=== PATIENT | female | born 1950 | race Caucasian/White ===

== ENCOUNTER 2025-04-04 12:03 | Emergency (ER) | payer MEDICARE, MEDICAID ==
[~2025-04-04] VITALS: Ht 170.2 cm; Wt 65.0 kg
[2025-04-04 12:13] VITALS: TEMP 97.4
--- NOTE | 2025-04-04 12:23 | ELECTROCARDIOGRAPH REPORT ---
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 Aramis Lira Measurements Intervals [place] Rate: 62 P: 21 GA: 153 QRS: -44 QRSD: 133 T: -38 QT: 530 QTc: 539 Interpretive Statements Sinus rhythm RBBB and LAFB Left ventricular hypertrophy Nonspecific T abnormalities, lateral leads ST elevation, consider inferior injury Electronically Signed On 04-12-2025 18:42:[address] Aramis Lira Please click the below link to view image of tracing.
[2025-04-04 12:38] LABS: BASOPHILS % (AUTO) 0.2 % (0-1); EOSINOPHILS # (AUTO) 0.1 X10'3 (0-0.9); EOSINOPHILS % (AUTO) 0.6 % (0-6); HEMATOCRIT 40.4 % (35.0-45.0); LYMPHOCYTES % (AUTO) 8.4 % (21-51); MEAN CORPUSCULAR HEMOGLOBIN 26.4 PG (27.0-31.0); MEAN CORPUSCULAR HGB CONC 32.1 g/dL (33.0-36.5); MEAN CORPUSCULAR VOLUME 82.3 FL (78-98); MEAN PLATELET VOLUME 6.5 FL (7.4-10.4); MONOCYTES # (AUTO) 0.3 X10'3 (0-0.9); MONOCYTES % (AUTO) 2.4 % (2-12); NEUTROPHILS % (AUTO) 88.4 % (42-75); PLATELET COUNT 372 X10'3 (140-440); RED BLOOD COUNT 4.91 X10'6 (4.20-5.60); RED CELL DISTRIBUTION WIDTH 18.4 % (11.5-14.5); WHITE BLOOD COUNT 12.4 X10'3 (4.5-11.0)
--- NOTE | 2025-04-04 12:44 | RADIOLOGY REPORT ---
CHEST RADIOGRAPH Indication: CP Technique: Single frontal view of the chest was obtained COMPARISON: None FINDINGS: Lines and Tubes: None Lungs: Clear Pleura: No effusion. No pneumothorax. Cardiomediastinal contours: Unremarkable Bones: Unremarkable IMPRESSION: No acute disease.
[2025-04-04 12:54] LABS: ANION GAP 8 (8-16); BLOOD UREA NITROGEN 18 MG/DL (7-18); BUN/CREATININE RATIO 22.5 (10.0-20.0); CALCIUM 9.6 MG/DL (8.5-10.1); CHLORIDE 106 MMOL/L (99-107); GLUCOSE 161 MG/DL (70-104); POTASSIUM 3.4 MMOL/L (3.5-5.1); PRO BRAIN NATRIURETIC PEPTIDE 1370 PG/ML (0-450); SODIUM 144 MMOL/L (135-145); TOTAL CARBON DIOXIDE 29.6 MMOL/L (24-32); eCRCL 59 ML/MIN; eGFR 70 ML/MIN
--- NOTE | 2025-04-04 14:19 | Physician Documentation ---
History of Present Illness ~ Chief Complaint: Dizziness Stated Complaint: DIZZY Time Seen by MD: 14:00 HPI 74-year-old female presents to the ED with a complaint of two days of dizziness. She states that she went to [facility] today to be evaluated and was sent here to the ED for concerns about of her heart. Patient is a poor historian. . She denies any current chest pain , does report shortness of breath Patient also was recently relocated from [facility] out of concerns for her health. She is working on getting established with a local doctors. Day of Onset: Apr 04, 2025 Medication Reconciliation Allergies: Coded Allergies: No Known Allergies (Unverified , 04/04/25) Scheduled Rosuvastatin Calcium (Rosuvastatin Calcium), 1 TAB PO DAILY, (Reported) Review of Systems All Other Systems at this time: Reviewed and Negative ROS As stated above in the HPI, otherwise all systems are reviewed and negative. Physical Exam Vital Signs: Temperature: 97.4, Source: Temporal, Heart Rate: 63, Respiratory Rate: 16, BP: 148/78, Pulse Oximetry: 96, Weight: 65.000 Oxygen Flow Rate: 0 Physical Exam General: Alert, no apparent distress. Respiratory: Lungs clear, no respiratory distress. Cardiovascular: Regular rate and rhythm, no murmurs. Extremities: Normal range of motion, no deformity. no Edema Neurologic: Oriented x4. Psychiatric: Normal mood and affect. Progress Results/Orders Results/Orders Orders - MASON HILL MD Chest,Single View (04/04/25 12:17) Monitor (04/04/25 12:17) Saline Lock (04/04/25 12:17) Oxygen (04/04/25 12:17) Cult Urine + [place] [address] (04/04/25 16:55) Completed Orders - MASON HILL MD Chest,Single View (04/04/25 12:17) Cbc/Diff (04/04/25 12:17) BMP (04/04/25 12:17) PBNP (04/04/25 12:17) Electrocardiogram (04/04/25 12:17) Hs Troponin I W Calculations (04/04/25 12:17) Hs Troponin I W Calculations (04/04/25 14:17) Hs Troponin I W Calculations (04/04/25 15:17) Ua W/Microscopic, Cult If Ind (04/04/25 16:14) Vital Signs 04/04/25 04/04/25 04/04/25 04/04/25 12:13 14:22 14:30 16:21 Temp 97.4 Pulse 63 66 67 Resp 16 15 15 14 B/P (MAP) 148/78 138/93 (108) 115/69 (84) Pulse Ox 96 98 96 O2 Flow Rate 0 Laboratory Tests Test 04/04/25 12:24 04/04/25 13:54 04/04/25 15:16 04/04/25 16:14 White Blood Count 12.4 H Red Blood Count 4.91 Hemoglobin 13.0 Hematocrit 40.4 Mean Corpuscular Volume 82.3 Mean Corpuscular Hemoglobin 26.4 L Mean Corpuscular Hemoglobin Concent 32.1 L Red Cell Distribution Width 18.4 H Platelet Count 372 Mean Platelet Volume 6.5 L Neutrophils (%) (Auto) 88.4 H Lymphocytes (%) (Auto) 8.4 L Monocytes (%) (Auto) 2.4 Eosinophils (%) (Auto) 0.6 Basophils (%) (Auto) 0.2 Neutrophils # (Auto) 11.0 H Lymphocytes # (Auto) 1.0 L Monocytes # (Auto) 0.3 Eosinophils # (Auto) 0.1 Basophils # (Auto) 0.0 CBC Comment Sodium Level 144 Potassium Level 3.4 L Chloride Level 106 Carbon Dioxide Level 29.6 Anion Gap 8 Blood Urea Nitrogen 18 Creatinine 0.80 Estimated GFR/1.73 m2 70 BUN/Creatinine Ratio 22.5 H Glucose Level 161 H Calcium Level 9.6 Troponin I High Sensitivity 47 41 41 Pro-B-Type Natriuretic Peptide 1370 H Albumin 3.0 L Chemistry Comments Troponin I High Sens Percent Delta 12 0 Troponin I Hi Sens Absolute Change -6 0 Urine Specimen Description Urinal Urine Color Yellow Urine Clarity Cloudy Urine pH 6.0 Urine Specific [place] 1.025 Urine Protein 30 H Urine Glucose (UA) Negative Urine Ketones Negative Urine Occult Blood Small Urine Nitrite Positive H Urine Bilirubin Negative Urine Urobilinogen 0.2 Urine Leukocyte Esterase Moderate H Urine RBC 10-20 Urine WBC Tntc H Urine Squamous Epithelial Cells Few Urine Renal Cells Few Urine Bacteria 4+ Urine Culture Indicated Indicated Volume Urine Centrifuged 10 ml Urine Comment Microbiology Date/Time Source Procedure Growth Status 04/04/25 16:55 Urine Urinal (Er Only) Urine Culture - Preliminary Gram Negative [place] Resulted Medical Decision Making Addendum I was asked to evaluate this patient, due to critical findings on a head CT. On chart review, she had been seen previously, and was being admitted for symptoms of dizziness. After consult for admission, head CT was obtained and I was contacted with a critical finding of a cerebellar hemorrhage. I reviewed the CT scan, which shows a small abnormality in the cerebellum that appears consistent with a hemorrhage. I then evaluated the patient. She tells me that she has had dizziness for 2 days. She states that she woke up with a yesterday. It is constant. She feels lightheaded, but does not really have vertigo or vision changes. No nausea. Nothing makes it change or get better. She is not on blood thinners including no aspirin. No other new or different neurologic symptoms. She does not walk at baseline. Consult: I then spoke to Neurosurgery at [facility]. They recommend transfer for admission and further evaluation. I spoke to Dr. Ho [facility] physician, who accepts for transfer ER to ER. Patient's blood pressure is well controlled without intervention. She was transferred to [facility] for further care. Mason Hill MD Departure Disposition: ADMITTED INPATIENT Impression: Primary Impression: Dizziness Referrals: NO PRIMARY CARE PROVIDER (PCP) Signature Scribe Signature: na Attestation: PRAVIN Montague NP Apr 04, 2025 14:19 MASON HILL MD Apr 04, 2025 16:58
[2025-04-04] MEDS ORDERED: ROSU40TA89 PO (14:22)
--- NOTE | 2025-04-04 15:42 | RADIOLOGY REPORT ---
CT CT HEAD INDICATION: dizzy EXAM DATE: 04/04/2025 02:54 PM COMPARISON: None RADIATION DOSE: CTDIvol: 54 mGy, DLP: 1931 mGy*cm PROCEDURE: CT scans of the head were obtained from the vertex to the skull base. Sagittal and coronal reconstructions were provided. All CT scans at this medical facility are performed using dose modulation techniques as appropriate t o a performed exam including the following: Automated exposure control was utilized; adjustment of th e MA and/or KV according to patient size; and use of iterative reconstruction technique. FINDINGS: Small area of hyperdensity in the left cerebellar peduncle could be hemorrhage. There is s ulcal and ventricular prominence. The brain this shows normal morphology and johnson-white matter differ entiation, without intracranial hemorrhage, extra-axial fluid collection, mass effect or acute large vessel infarct. The ventricles are normal in size. The basal cisterns are patent. The skull and visib le facial bones are intact. The paranasal sinuses, mastoid air cells and middle ear cavities are well -aerated. The soft tissues of the scalp are unremarkable. IMPRESSION: Small area of hyperdensity in the left cerebellar peduncle could be hemorrhage. Critical Result: Intracranial hemorrhage Findings discussed with ,Jessa peterson at 04/04/2025 03:29 PM and acknowledged receipt and understandi ng of the findings.
[2025-04-04 16:21] VITALS: BP 115/69; PULSE 67; RESP 14; O2SAT 96
[2025-04-04 16:31] LABS: BILIRUBIN,URINE NEGATIVE (Neg); CLARITY,URINE CLOUDY (Clear); COLOR,URINE YELLOW (Yellow); GLUCOSE, URINE NEGATIVE (Neg); KETONES,URINE NEGATIVE (Neg); LEUKOCYTE ESTERASE ,URINE MODERATE (Neg); NITRITES, URINE POSITIVE (Neg); OCCULT BLOOD,URINE SMALL (Neg); PROTEIN,URINE 30 mg/dl (Neg); UROBILINOGEN,URINE 0.2 E.U/dL (0.2-1.0)
[2025-04-04 16:52] LABS: UA COLLECTION TYPE URINAL
[2025-04-04 16:56] LABS: BACTERIA,URINE 4+ /HPF (Neg); RENAL CELLS, URINE FEW /HPF; SQUAMOUS EPITHELIAL CELL,UR FEW /LPF (FEW); WBC,URINE TNTC /HPF (0-4)
== END 2025-04-04 16:45 | disposition admitted as inpatient to this hospital (09) ==
LOC: ER 12:04
DX: R42 Dizziness and giddiness (principal); R06.02 Shortness of breath
CPT/HCPCS: 36415; 70450; 71045; 80048; 81001; 83880; 84484; 85025; 87077; 87088; 87186; 93005; 99285